=== PATIENT | female | born 1960 | race Two or more races ===

== ENCOUNTER 2024-06-03 15:42 | Inpatient (IN) | payer BC, OTHER ==
[~2024-06-03] VITALS: Ht 170.2 cm; Wt 64.1 kg
--- NOTE | 2024-06-03 15:51 | ECG ---
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
--- NOTE | 2024-06-03 16:18 | ED.PDOC ---
HPI Comments 64 y/o F, presents to the ED for CC of chest pain. Patient states, that she was sitting in her car when she began to experience sudden spontaneous left sided chest pain with associated symptoms of palpations and shortness of breath. Patient relays, new onset symptoms of headache following the episode of chest pain which has since subsided upon arrival to the ED. Patient complains of current 6/10 pain. Patient denies numbness, weakness, lightheadedness, or N/V/D. No other symptoms or modifying factors at this time. Chief Complaint: Chest Pain Time Seen by MD: 16:00 Primary Care Provider: SABINE Valencia Notes: Nurses Notes, Medications, Allergies Allergies: Coded Allergies: NO KNOWN ALLERGIES (Unverified , 06/03/24) Information Source: Patient Mode of Arrival: Ambulatory Severity: Moderate Timing: Hours Duration: Since onset Prehospital treatment: None Location: Chest (L) Radiation: No Radiation Onset: At Rest Cardiac Risk Factors: None PE Risk Factors: None History of: None Modifying Factors: Nothing Associated Signs and Symptoms: SOB, Palpitations Past Medical History PAST MEDICAL HISTORY: Denies Surgical History: Denies all surgeries ASSISTED SALES REPRESENTATIVE History: Denies all ASSISTED SALES REPRESENTATIVE Hx Family History Family History: Unknown Social History Smoker: Non-Smoker Alcohol: Occasionally Drugs: Denies Drug Use Lives In: Home Constitutional: denies: chills, diaphoresis, fatigue, fever, malaise, sweats, weakness, others EENTM: denies: blurred vision, double vision, ear bleeding, ear discharge, ear drainage, ear pain, ear ringing, eye pain, eye redness, hearing loss, mouth pain, mouth swelling, nasal discharge, nose bleeding, nose congestion, nose pain, photophobia, tearing, throat pain, throat swelling, voice changes, others Respiratory: denies: cough, hemoptysis, orthopnea, SOB at rest, shortness of breath, SOB with excertion, stridor, wheezing, others Cardiovascular: reports: chest pain, palpitations; denies: dizzy spells, diaphoresis, Dyspnea on exertion, edema, irregular heart beat, left arm pain, lightheadedness, PND, syncope, others Gastrointestinal: denies: abdomen distended, abdominal pain, blood streaked bowels, constipated, diarrhea, dysphagia, difficulty swallowing, hematemesis, melena, nausea, poor appetite, poor fluid intake, rectal bleeding, rectal pain, vomiting, others Genitourinary: denies: abnormal vagina bleeding, burning, dyspareunia, dysuria, flank pain, frequency, hematuria, incontinence, pain, , vagina discharge, urgency, others Neurological: reports: headache; denies: dizziness, fainting, left sided numbness, left sided weakness, numbness, paresthesia, pre-existing deficit, right sided numbness, right sided weakness, seizure, speech problems, tingling, tremors, weakness, others Musculoskeletal: denies: back pain, gout, joint pain, joint swelling, muscle pain, muscle stiffness, neck pain, others Integumetry: denies: bruises, change in color, change in hair/nails, dryness, laceration, lesions, lumps, rash, wounds, others Allergic/Immunocompromised: denies: Difficulty Healing, Frequent Infections, Hives, Itching, others Hematologic/Lymphatic: denies: anemia, blood clots, easy bleeding, easy bruising, swollen glands, others Endocrine: denies: excessive hunger, excessive sweating, excessive thirst, excessive urination, flushing, intolerance to cold, intolerance to heat, unexplained weight gain, unexplained weight loss, others Psychiatric: denies: anxiety, bipolar disorder, depression, hopeless, panic disorder, schizophrenia, sleepless, suicidal, others All Other Systems: Reviewed and Negative Physical Exam General Appearance: Moderate Distress HEENT: Normal ENT Inspection, Pharynx Normal, TMs Normal Neck: Full Range of Motion, Non-Tender, Normal, Normal Inspection Respiratory: Chest Non-Tender, Lungs Clear, No Accessory Muscle Use, No Respiratory Distress, Normal Breath Sounds Cardiovascular: Bradycardia, No Edema, No JVD, No Murmur, No Gallop Breast Exam: Deferred Gastrointestinal: No Organomegaly, Non Tender, No Pulsatile Mass, Normal Bowel Sounds, Soft Genitalia: Deferred Pelvic: Deferred Rectal: Deferred Extremities: No calf tenderness, Normal capillary refill, Normal inspection, Normal range of motion, Non-tender, No pedal edema Musculoskeletal : Apperance: Normal 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 Was a procedure done?: No CP Differential Dx Differential Diagnosis: Anxiety / Panic Attack Differential Diagnosis: Chest Wall Pain, Costochondritis, Pneumonia X-Ray, Labs, Meds, VS Vital Signs Date Time Temp Pulse Resp B/P (MAP) Pulse Ox O2 Delivery O2 Flow Rate FiO2 06/03/24 17:54 54 16 98 Room Air* 0 21 06/03/24 17:54 97.8 54 14 155/67 (96) 98 97.8 06/03/24 15:50 49 06/03/24 15:46 97.6 51 18 123/48 (73) 99 Lab Test 06/03/24 17:23 06/03/24 15:58 Range/Units Troponin I High Sensitivity 4 4 </=34 ng/L White Blood Count 2.8 L 4.4-10.8 10^3/uL Red Blood Count 4.15 4.0-5.20 10^6/uL Hemoglobin 13.0 12.2-16.2 g/dL Hematocrit 39.4 36.0-46.0 % Mean Corpuscular Volume 94.8 80.0-100.0 fL Mean Corpuscular Hemoglobin 31.2 28.0-32.0 pg Mean Corpuscular Hemoglobin Concent 32.9 32.0-36.0 g/dL Red Cell Distribution Width 13.5 11.8-14.3 % Platelet Count 227 140-450 10^3/uL Mean Platelet Volume 7.4 6.9-10.8 fL Neutrophils (%) (Auto) 56.2 37.0-80.0 % Lymphocytes (%) (Auto) 29.5 10.0-50.0 % Monocytes (%) (Auto) 11.1 0.0-12.0 % Eosinophils (%) (Auto) 2.9 0.0-7.0 % Basophils (%) (Auto) 0.3 0.0-2.0 % Neutrophils # (Auto) 1.6 1.6-8.6 10 ^3/uL Lymphocytes # (Auto) 0.8 0.4-5.4 10 ^3/uL Monocytes # (Auto) 0.3 0-1.3 10 ^3/uL Eosinophils # (Auto) 0.1 0-0.8 10 ^3/uL Basophils # (Auto) 0 0-0.2 10 ^3/uL Nucleated Red Blood Cells 0.0 % Sodium Level 140 136-145 mmol/L Potassium Level 4.4 3.5-5.1 mmol/L Chloride Level 105 98-107 mmol/L Carbon Dioxide Level 28 20-31 mmol/L Anion Gap 7 5-15 Blood Urea Nitrogen 20 9-23 mg/dL Creatinine 0.87 0.550-1.02 mg/dL Glomerular Filtration Rate Calc 75 >90 mL/min BUN/Creatinine Ratio 23.0 H 10.0-20.0 Serum Glucose 109 H 74-106 mg/dL Calcium Level 10.0 8.7-10.4 mg/dL Current Medications Medications (Trade) Dose Ordered Sig/Jagruti Route Start Time Stop Time Status Last Admin Aspirin 162 mg ONCE ONCE PO 06/03/24 16:15 06/03/24 16:16 DC 06/03/24 17:48 CXR TWO VIEWS: FINDINGS: Lines and Tubes: None Lungs: Granulomatous changes right upper lobe, stable Pleura: No effusion. No pneumothorax. Cardiomediastinal contours: Unremarkable Bones: Unremarkable IMPRESSION: 1. No evidence of acute disease. ATED BY: ELIJAH ARMENDARIZ MD DICTATED DATE/TIME: 06/03/241635 SIGNED BY: ELIJAH ARMENDARIZ MD SIGNED DATE/TIME: 06/03/241635 CC: IV Hep-Lock was established The patient was given aspirin 162 mg by mouth The patient's CBC shows leukopenia at 2.8 The troponin level x2 is negative The chemistry panel is within normal limits The patient has persistent pain so we are admitting the patient to the hospitalist The patient was diagnosis is acute coronary syndrome The patient was admitted A cardiology consult will be obtained. Images Reviewed?: Images reviewed and evaluated by me Time of 1ST Reevaluation: 16:30 Reevaluation 1ST: Unchanged Patient Education/Counseling: Diagnosis, Treatment Family Education/Counseling: No Family Present Departure 1 Departure Time of Disposition: 18:48 Impression: Primary Impression: Acute coronary syndrome Additional Impression: Sinus bradycardia Disposition: ADMITTED INPATIENT Admit to: [facility] Condition: Fair Critical Care Note Critical Care Time?: Yes (35 min-critical care time only) Stability Stability form required: Yes Unstable for transfer: Telemetry monitoring (Telemetry monitoring required), ED Physician Assesment (Clinical assesment) Heart Score Heart Score: Heart Score Response (Comments) Value History Moderate Suspicious 1 EKG Repolarization Disturb 1 Age 45-64 1 Risk Factors 1 or 2 risk factors 1 Troponin Normal limit 0 Total 4 I personally scribed for HOWIE NOE MD ([email or web address]) on 06/03/24 at 16:18. Electronically submitted by Isaura Barry ([employer]). I personally scribed for HOWIE NOE MD ([email or web address]) on 06/03/24 at 16:28. Electronically submitted by Isaura Barry ([employer]). I personally scribed for HOWIE NOE MD ([email or web address]) on 06/03/24 at 16:57. Electronically submitted by Isaura Barry ([employer]). HOWIE NOE MD Jun 03, 2024 16:18
[2024-06-03 16:28] LABS: Basophils # (auto) 0 10 ^3/uL (0-0.2); Basophils % (auto) 0.3 % (0.0-2.0); Eosinophils # (auto) 0.1 10 ^3/uL (0-0.8); Eosinophils % (auto) 2.9 % (0.0-7.0); Hematocrit 39.4 % (36.0-46.0); Lymphocytes # (auto) 0.8 10 ^3/uL (0.4-5.4); Lymphocytes % (auto) 29.5 % (10.0-50.0); Mean Corpuscular Hemoglobin 31.2 pg (28.0-32.0); Mean Corpuscular Hgb Conc. 32.9 g/dL (32.0-36.0); Mean Corpuscular Volume 94.8 fL (80.0-100.0); Monocytes # (auto) 0.3 10 ^3/uL (0-1.3); Monocytes % (auto) 11.1 % (0.0-12.0); Neutrophils # (auto) 1.6 10 ^3/uL (1.6-8.6); Neutrophils % (auto) 56.2 % (37.0-80.0); Platelet Count (auto) 227 10^3/uL (140-450); Red Blood Cells 4.15 10^6/uL (4.0-5.20); Red Cell Distribution Width 13.5 % (11.8-14.3); White Blood Cell 2.8 10^3/uL (4.4-10.8)
[2024-06-03 16:35] LABS: Chloride 105 mmol/L (98-107); Potassium 4.4 mmol/L (3.5-5.1); Sodium 140 mmol/L (136-145)
[2024-06-03 16:36] LABS: Anion Gap 7 (5-15); Carbon Dioxide 28 mmol/L (20-31)
--- NOTE | 2024-06-03 16:39 | DVH ---
CHEST RADIOGRAPH Indication: cp Technique: Frontal and lateral view of the chest was obtained Comparison: None FINDINGS: Lines and Tubes: None Lungs: Granulomatous changes right upper lobe, stable Pleura: No effusion. No pneumothorax. Cardiomediastinal contours: Unremarkable Bones: Unremarkable IMPRESSION: 1. No evidence of acute disease.
[2024-06-03 16:41] LABS: Blood Urea Nitrogen 20 mg/dL (9-23)
[2024-06-03 16:45] LABS: Glucose 109 mg/dL (74-106)
--- NOTE | 2024-06-03 16:52 | ECG ---
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
[2024-06-03] MEDS: ASPirin 81 mg TAB PO ONE (17:48)
[2024-06-03 17:54] VITALS: PULSE 54; RESP 16; O2SAT 98
[2024-06-03] MEDS ORDERED: ONDANSETRON HCL 4 MG/2 ML VIAL IV PRN (19:15)
[2024-06-03] MEDS ORDERED: MORPHINE SULFATE INJ 2 MG/ml SYRG IV PRN (19:15)
[2024-06-03] MEDS ORDERED: ACETAMINOPHEN 325 MG TAB PO PRN (19:15)
[2024-06-03] MEDS ORDERED: NITROGLYCERIN 0.4 MG SL TAB SL PRN (19:15)
[2024-06-04] MEDS: ATORVASTATIN 20 MG TAB PO SCH (02:45)
[2024-06-04 02:48] VITALS: PULSE 51; RESP 18; O2SAT 97
--- NOTE | 2024-06-04 03:31 | DVHHP2 ---
History of Present Illness Reason for Visit: Chest pain History of Present Illness 64-year-old female presents for evaluation new onset of chest pain. Patient reports having an episode yesterday while sitting in her car where she developed left-sided pressure-like chest pain with associated shortness for breath and palpitations. She reports the symptoms have subsided since arrival to the emergency department. Past Medical History Hypertension Past Surgical History Denies Family History Noncontributory Smoke: No ALCOHOL: occassional Drugs: None Lives: with Family Review of Systems Review of Systems Review of systems are currently negative otherwise addressed in HPI. Allergies: Coded Allergies: NO KNOWN ALLERGIES (Unverified , 06/03/24) Medications Current Medications Medications Dose Ordered Sig/Jagruti Route Start Time Stop Time Status Last Admin Dose Admin Aspirin 81 mg DAILY PO 06/04/24 10:00 Atorvastatin Calcium 10 mg HS PO 06/03/24 22:00 06/04/24 02:45 10 MG Valsartan 80 mg DAILY PO 06/04/24 10:00 Amlodipine Besylate 2.5 mg DAILY PO 06/04/24 10:00 Ondansetron HCl 4 mg Q4HP PRN IV 06/03/24 19:15 Acetaminophen 650 mg Q6HP PRN PO 06/03/24 19:15 Nitroglycerin 0.4 mg Q5MINP PRN SL 06/03/24 19:15 Morphine Sulfate 2 mg Q30M PRN IV 06/03/24 19:15 Exam Vital Signs Vital Signs Date Time Temp Pulse Resp B/P (MAP) Pulse Ox O2 Delivery O2 Flow Rate FiO2 06/04/24 02:48 97.8 51 18 109/41 (63) 97 97.8 06/04/24 02:48 Room Air* 0 21 Exam Gen: 64-year-old female in mild distress Skin: Warm, dry, normal color and texture, no rash. HEENT: Normocephalic atraumatic, mucous membranes moist and pink. Neck: Cervical and supraclavicular nodes normal without enlargement, trachea is midline, thyroid gland is normal without masses. Pulmonary: Clear to auscultation and percussion bilaterally. Cardiac: Regular rate and rhythm. No murmur Abdomen: Soft, nontender, nondistended, bowel sounds present all 4 quadrants, no guarding, no rigidity, no organomegaly. Extremities: No cyanosis, clubbing, no edema Neuro: Cranial nerves II through XII grossly intact, normal affect and speech, no focal motor deficits. Labs/Xrays ORDERING PHYSICIAN: HOWIE NOE MD PROCEDURE(s): CXR2 - CHEST TWO VIEWS ROUTINE REASON: cp ORDER NUMBER(s): [id number], ACCESSION NUMBER(s): [id number] CHEST RADIOGRAPH Indication: cp Technique: Frontal and lateral view of the chest was obtained Comparison: None FINDINGS: Lines and Tubes: None Lungs: Granulomatous changes right upper lobe, stable Pleura: No effusion. No pneumothorax. Cardiomediastinal contours: Unremarkable Bones: Unremarkable IMPRESSION: 1. No evidence of acute disease. Labs Test 06/03/24 17:23 06/03/24 15:58 Range/Units Troponin I High Sensitivity 4 </=34 ng/L White Blood Count 2.8 L 4.4-10.8 10^3/uL Red Blood Count 4.15 4.0-5.20 10^6/uL Hemoglobin 13.0 12.2-16.2 g/dL Hematocrit 39.4 36.0-46.0 % Mean Corpuscular Volume 94.8 80.0-100.0 fL Mean Corpuscular Hemoglobin 31.2 28.0-32.0 pg Mean Corpuscular Hemoglobin Concent 32.9 32.0-36.0 g/dL Red Cell Distribution Width 13.5 11.8-14.3 % Platelet Count 227 140-450 10^3/uL Mean Platelet Volume 7.4 6.9-10.8 fL Neutrophils (%) (Auto) 56.2 37.0-80.0 % Lymphocytes (%) (Auto) 29.5 10.0-50.0 % Monocytes (%) (Auto) 11.1 0.0-12.0 % Eosinophils (%) (Auto) 2.9 0.0-7.0 % Basophils (%) (Auto) 0.3 0.0-2.0 % Neutrophils # (Auto) 1.6 1.6-8.6 10 ^3/uL Lymphocytes # (Auto) 0.8 0.4-5.4 10 ^3/uL Monocytes # (Auto) 0.3 0-1.3 10 ^3/uL Eosinophils # (Auto) 0.1 0-0.8 10 ^3/uL Basophils # (Auto) 0 0-0.2 10 ^3/uL Nucleated Red Blood Cells 0.0 % Sodium Level 140 136-145 mmol/L Potassium Level 4.4 3.5-5.1 mmol/L Chloride Level 105 98-107 mmol/L Carbon Dioxide Level 28 20-31 mmol/L Anion Gap 7 5-15 Blood Urea Nitrogen 20 9-23 mg/dL Creatinine 0.87 0.550-1.02 mg/dL Glomerular Filtration Rate Calc 75 >90 mL/min BUN/Creatinine Ratio 23.0 H 10.0-20.0 Serum Glucose 109 H 74-106 mg/dL Calcium Level 10.0 8.7-10.4 mg/dL Assessment/Plan Assessment/Plan Assessment Chest pain rule out ACS Hypertension Plan Admit the patient to telemetry to the hospitalist Cardiology consultation Echocardiogram pending Resume home medications Continue treatment per orders. Plan discussed with: Patient My Orders Orders - ELSI SANTOS AGACNToño Procedure Category Date Status Time Aspirin Tablet PHA 06/04/24 In Process 10:00 Valsartan (Diovan) PHA 06/04/24 In Process 10:00 Amlodipine Tablet PHA 06/04/24 In Process (Norvasc Tablet) 10:00 * Cardiology Consult CONS 06/03/24 Transmitted 19:05 Basic Metabolic Panel LAB 06/04/24 Logged 04:00 Admit ADMIT 06/03/24 Transmitted 19:05 Ondansetron Hcl PHA 06/03/24 In Process (Zofran) 19:15 Cardiac DIET 06/04/24 Transmitted Diet-2gna,Lofat,Lochol Breakfast Echo 2d Mode Cardiac US 06/03/24 Logged DOP 19:05 Condition: Fair PANFILO 06/03/24 In Process 19:05 Acetaminophen Tablet PHA 06/03/24 In Process (Tylenol Tablet) 19:15 Bedrest With Bathroom PANFILO 06/03/24 In Process Privileg 19:05 Nitroglycerin PHA 06/03/24 In Process Sublingual (Ntrostat 19:15 Morphine Sulfate PHA 06/03/24 In Process Injection 19:15 Stat Ekg For Chest PANFILO 06/03/24 In Process Pain 19:05 Notify Of Changes PANFILO 06/03/24 In Process From Base 19:05 Automatic Pinsetter Adjuster For PANFILO 06/03/24 In Process 24 Hours 19:05 Emergency Dysrhythmia [facility] 06/03/24 In Process Protocol 19:05 Rhythm Strips Once [facility] 06/03/24 In Process Every Shift 19:05 Oxygen By Nasal RT 06/03/24 Transmitted Cannula 19:05 Atorvastatin (Lipitor) PHA 06/03/24 In Process 22:00 Thyroid Stimulating LAB 06/04/24 Logged Hormone 03:24 Lipid Panel LAB 06/04/24 Logged 04:00 Date of Service: Jun 03, 2024 Billing Provider: ELSI SANTOS Common Visit Codes: [id number] INP/OBS CARE (HIGH) ELSI SANTOS Jun 04, 2024 03:31
[2024-06-04 07:02] LABS: Chloride 107 mmol/L (98-107); Potassium 3.9 mmol/L (3.5-5.1); Sodium 141 mmol/L (136-145)
[2024-06-04 07:03] LABS: Anion Gap 6 (5-15); Carbon Dioxide 28 mmol/L (20-31)
[2024-06-04 07:04] LABS: Calcium 9.9 mg/dL (8.7-10.4)
[2024-06-04 07:08] LABS: Blood Urea Nitrogen 17 mg/dL (9-23)
[2024-06-04 07:09] LABS: LDL Cholesterol 79 mg/dL (< 100); Triglycerides 154 mg/dL (< 150)
[2024-06-04 07:10] LABS: Cholesterol 184 mg/dL (< 200)
[2024-06-04 07:12] LABS: HDL Cholesterol 85 mg/dL (40-59)
[2024-06-04 07:24] LABS: Glucose 142 mg/dL (74-106)
--- NOTE | 2024-06-04 09:39 | DVHINCON2 ---
Date Seen: Jun 04, 2024 Referring Physician CALVIN Sandoval Reason for Consultation Chest pain History of Present Illness This is a 64-year-old female who presented to the emergency room with a chief complaint of chest pain for a few hours prior to arrival. Describes her chest pain as substernal, heavy like, nonradiating, and associated with mild SOB, ORTIZ, and palpitations. Denies diaphoresis, dizziness, or syncopal events. She underwent multiple 12 lead electrocardiogram revealing a sinus bradycardia rhythm with multiple PACs and suggestive of LVH. She takes valsartan 80 mg for blood pressure control and stopped taking amlodipine 2.5 mg given borderline blood pressures. Serial troponin levels are negative. Significant medical history includes hypertension and dyslipidemia. Past Medical History Past medical history reviewed. No other significant than mentioned above. Past Surgical History Denies any past surgical history. Family History Family history reviewed. Not significant for CV disease. Social History Denies the use of illicit drugs, alcohol, or tobacco use. Allergies: Coded Allergies: NO KNOWN ALLERGIES (Unverified , 06/03/24) Home Meds Home medications reviewed. Current Medications Current Medications Medications (Trade) Dose Ordered Sig/Jagruti Route PRN Reason Start Time Stop Time Status Last Admin Aspirin 81 mg DAILY PO 06/04/24 10:00 Atorvastatin Calcium (Lipitor) 10 mg HS PO 06/03/24 22:00 06/04/24 02:45 Valsartan (Diovan) 80 mg DAILY PO 06/04/24 10:00 Amlodipine Besylate (Norvasc Tablet) 2.5 mg DAILY PO 06/04/24 10:00 Ondansetron HCl (Zofran) 4 mg Q4HP PRN IV NAUSEA / VOMITING 06/03/24 19:15 Acetaminophen (Tylenol Tablet) 650 mg Q6HP PRN PO PAIN SCALE 1-3 OR TEMP>100.4 06/03/24 19:15 Nitroglycerin (Ntrostat Sublingual) 0.4 mg Q5MINP PRN SL FOR CHEST PAIN 06/03/24 19:15 Morphine Sulfate 2 mg Q30M PRN IV FOR CHEST PAIN 06/03/24 19:15 Review of Systems Constitutional: No symptom reported Ears, Nose, & Throat: No symptom reported Eyes: No symptom reported Neurological: No symptoms reported Pulmonary/Respiratory: No symptom reported Cardiovascular: Chest pain, palpitations Gastrointestinal: No symptom reported Genitourinary: No symptom reported Musculoskeletal: No symptom reported Skin: No symptom reported Psychiatric: No symptom reported Endocrine: No symptom reported Hemotologic/Lymphatic: No symptom reported Vital Signs Vital Signs Date Time Temp Pulse Resp B/P (MAP) Pulse Ox O2 Delivery O2 Flow Rate FiO2 06/04/24 07:26 97.8 58 18 112/47 (68) 98 97.8 06/04/24 02:48 Room Air* 0 21 Physical Exam General Appearance: Cooperative. Well developed. Well nourished. In no acute distress Head Exam: Normal inspection Neck Exam: Normal inspection. Non-tender. Normal alignment Pulmonary/Respiratory: Chest non-tender. Clear bilateral breath sounds Cardiovascular/Chest: Regular rate and rhythm. S1, S2. Sinus bradycardia with multiple PACs. No murmurs. No JVD. Peripheral Pulses: 2+ Radial (R). 2+ Radial (L). 2+ Pedal (R). 2+ Pedal (L) Abdominal Exam: Normal bowel sounds. Soft. Nontender. No hepatospenomegaly. No masses Ankle Exam: Negative ankle edema Lower extremities: Negative lower extremity edema Neuro/Mental Status: A&O x4. Coherent Thoughts/Psych: Normal thought pattern. Appropriate mood and affect. Good judgement and insight Appearance: In no acute distress Skin Exam: Normal inspection. Normal color. Warm. Dry Labs/Diagnostic Data Labs Test 06/04/24 06:14 06/03/24 17:23 06/03/24 15:58 Range/Units Sodium Level 141 136-145 mmol/L Potassium Level 3.9 3.5-5.1 mmol/L Chloride Level 107 98-107 mmol/L Carbon Dioxide Level 28 20-31 mmol/L Anion Gap 6 5-15 Blood Urea Nitrogen 17 9-23 mg/dL Creatinine 0.81 0.550-1.02 mg/dL Glomerular Filtration Rate Calc 82 >90 mL/min BUN/Creatinine Ratio 21.0 H 10.0-20.0 Serum Glucose 142 H 74-106 mg/dL Calcium Level 9.9 8.7-10.4 mg/dL Triglycerides Level 154 H < 150 mg/dL Cholesterol Level 184 < 200 mg/dL LDL Cholesterol 79 < 100 mg/dL HDL Cholesterol 85 H 40-59 mg/dL Thyroid Stimulating Hormone (TSH) 1.61 0.55-4.78 uIU/mL Troponin I High Sensitivity 4 </=34 ng/L White Blood Count 2.8 L 4.4-10.8 10^3/uL Red Blood Count 4.15 4.0-5.20 10^6/uL Hemoglobin 13.0 12.2-16.2 g/dL Hematocrit 39.4 36.0-46.0 % Mean Corpuscular Volume 94.8 80.0-100.0 fL Mean Corpuscular Hemoglobin 31.2 28.0-32.0 pg Mean Corpuscular Hemoglobin Concent 32.9 32.0-36.0 g/dL Red Cell Distribution Width 13.5 11.8-14.3 % Platelet Count 227 140-450 10^3/uL Mean Platelet Volume 7.4 6.9-10.8 fL Neutrophils (%) (Auto) 56.2 37.0-80.0 % Lymphocytes (%) (Auto) 29.5 10.0-50.0 % Monocytes (%) (Auto) 11.1 0.0-12.0 % Eosinophils (%) (Auto) 2.9 0.0-7.0 % Basophils (%) (Auto) 0.3 0.0-2.0 % Neutrophils # (Auto) 1.6 1.6-8.6 10 ^3/uL Lymphocytes # (Auto) 0.8 0.4-5.4 10 ^3/uL Monocytes # (Auto) 0.3 0-1.3 10 ^3/uL Eosinophils # (Auto) 0.1 0-0.8 10 ^3/uL Basophils # (Auto) 0 0-0.2 10 ^3/uL Nucleated Red Blood Cells 0.0 % Assessment Chest pain rule out coronary artery disease Sinus bradycardia with multiple PACs Hypertension Dyslipidemia Plan/Recommendation (Dr. Bass) The patient presents with a 12 lead electrocardiogram revealing a sinus bradycardia rhythm suggestive of left ventricular hypertrophy with associated PACs and a Heart Score of 4 placing her at a moderate risk for major cardiac events. Continue further cardiac evaluation with a transthoracic echocardiogram to rule out structural heart disease and a treadmill Cardiolite stress test to rule out coronary ischemia. In the meantime, initiate BB and magnesium therapy. Monitor ECG changes and notify. Continue chest pain protocol. Thank you for allowing us to participate in this patient's care. Please call if you have any questions or concerns. This medical document was created using an electronic medical record system with voice recognition software and computerized dictation system. Although this document has been carefully reviewed, there might still be some phonetic and typographical errors. Occasional wrong-word or ``sound-alike substitutions may have occurred due to the inherent limitations of voice recognition software. These areas are purely typographical due to imperfections of the software programs and do not reflect any compromise in the patient's medical care. Pl ease read the chart carefully and recognize, using context, where these substitutions have occurred. Plan discussed with: Patient, Other NYHA Physical activity limitations: NA Date of Service: Jun 04, 2024 Billing Provider: RANDOLPH GONSALVES Cardiology Common Codes: [id number] INP/OBS CARE (High) RANDOLPH GONSALVES Jun 04, 2024 09:39
[2024-06-04] MEDS ORDERED: amLODIPine BESYLATE 5 MG TAB PO SCH (10:00)
[2024-06-04] MEDS ORDERED: VALSARTAN 80 MG TAB PO SCH (10:00)
[2024-06-04] MEDS: ASPirin 81 mg TAB PO SCH (11:51)
[2024-06-04] MEDS: MAGNESIUM OXIDE 400 MG TAB PO ONE (11:51)
[2024-06-04] MEDS: METOPROLOL SUCCINATE XL 50 MG TAB PO SCH (11:53)
--- NOTE | 2024-06-04 12:05 | DVHCARD ---
Cardiology Stress Test [place] Treadmill Stress Test [place] Referring MD: CALVIN Gonsalves Protocol: Carroll (with cardiolite) Reason for referral: Chest Pain Target heart Rate:@85%: 134 Percent MPHR: 158 METS: 10.4 Resting Heart rate: 57 Resting Blood Pressure: 113/55 Exercise Heart Rate: 141 Exercise Blood Pressure: 149/97 Reason for Termination of Test: Chest Pain Baseline EKG: Sinus bradycardia with LVH Stress EKG: Sinus tachycardia with artifact difficult to discern ST-segment change Functional Capacity: Good Normal Heart Rate Response: Adequate Blood Pressure Response: Hypertensive Clinical response: Inconclusive Arrhythmia?: No Cardiolite Injected?: Yes ST-T Changes: Inconclusive Probability of Inducible Ische: Perfusion result pending Comments: Unable to discern ST segment changes given artifact Date of Service: Jun 04, 2024 Billing Provider: RANDOLPH GONSALVES Cardiology Common Codes: PROCEDURE ONLY Treadmill W/Cardiolite Nuclear: [id number], INTERP, RPT RANDOLPH GONSALVES Jun 04, 2024 12:05
[2024-06-04] MEDS: SODIUM CHLORIDE 0.9% 500 ML IV ONE (17:30)
[2024-06-04 19:42] VITALS: BP 111/49; PULSE 54; RESP 17; TEMP 98.2; O2SAT 98
[2024-06-04 20:00] VITALS: PULSE 54; PULSE 58; RESP 17; O2SAT 98
[2024-06-04] MEDS ORDERED: VALS80TA44 PO (20:31)
[2024-06-04 20:55] VITALS: BP 111/49; PULSE 54; RESP 17; TEMP 98.2; O2SAT 97
[2024-06-05] VITALS (7 sets, daily range): BP systolic 103–125; BP diastolic 36–51; PULSE 43–57; RESP 16–17; TEMP 97.6–98.2; O2SAT 96–99
[2024-06-05] MEDS: SODIUM CHLORIDE 0.9% 500 ML IV ONE (05:39)
[2024-06-05] MEDS ORDERED: AMLO1TAB21 PO (07:34)
[2024-06-05] MEDS ORDERED: VALS1TAB57 PO (07:34)
[2024-06-05 12:57] LABS: Urine Bacteria None Seen /hpf (None Seen)
[2024-06-05 13:05] LABS: Urine Blood Negative /uL (Negative); Urine Clarity Clear (Clear); Urine Color Colorless (Yellow); Urine Protein, UAD Negative (Negative); Urine Specific Gravity 1.006 (1.001-1.035); Urine Squamous Epithelial Cell FEW /hpf (<5); Urine Urobilinogen Normal (Negative); Urine WBC 1 /HPF (0-5); Urine pH 6.5 (5.0-9.0)
--- NOTE | 2024-06-05 13:21 | DVHSR ---
APPROVED REPORT Exam: Nuclear Stress Test Indication: Chest pain BMI: 0 Medical History Medical History: HTN Stress Test Details Stress Test: Exercise stress testing was performed using a Carroll protocol. HR Resting HR: 57 bpmMax Heart Rate (APMHR): 158.304995 bpm Max HR Achieved: 141 bpmTarget HR (85% APMHR): 134.876932 bpm % of APMHR: 89.24 Recovery HR: 74 bpm BP Resting BP: 113/55 mmHg Recovery BP: 156/69 mmHg ECG Resting ECG: Sinus Bradycardia Clinical Reason for Termination: Completed protocol Exercise duration: 9 min 0 sec Nurse Comments Recieved ambulatory, A/Ox4 on RA, connected to data communications technician, VS stable. PIV S/L flushes well, revi ewed POC, pt verbalized understanding. Vivek HAND SPRAY OPERATOR here to monitor exam. Treadmill test performed per protocol. Pt stable, tolerated well, VS returned to baseline. Pt to follow up with material cutter for results. Stress ECG Conclusion ecg shows SR, frequent ectopy, PACs , abnormal stress imaging no ischemia normal perfusion normal lvef 63% NM EXAM: Myocardial Perfusion REST/STRESS Imaging Protocol: Rest Tc-99m/Stress Tc-99m 1 day Resting Data Rest SPECT myocardial perfusion imaging was performed in supine position 60 minutes following the int ravenous injection of 12.2 mCi of Tc-99m Sestamibi. Time of rest injection: 1000 Time of rest imagin Administration Route: IV Administration Site: Right Arm Pharmacologic Stress Time of stress injection: 1140 Time of stress imagin Administration Route: IV Administration Site: Right Arm The images were gated to evaluate regional wall motion and calculate left ventricular ejection fracti on. Stress only was performed in the Supine position. Exercise Stress At peak stress, the patient was injected intravenously with 32.4mCi of Tc-99m Sestamibi. Time of stress injection: 1140 Time of stress imagin Administration Route: IV Administration Site: Right Arm Patient continued to exercise for 9 minute(s). Gated Stress SPECT was performed 30 minutes after stress injection. The images were gated to evaluate regional wall motion and calculate left ventricular ejection fracti on. Stress only was performed in the Supine position. Nuclear Conclusion Nuclear Findings: negative for ischemia ecg shows SR, frequent ectopy, PACs , abnormal stress imaging no ischemia normal perfusion normal lvef 63%
--- NOTE | 2024-06-05 15:49 | DVHSR ---
APPROVED REPORT EXAM: Two-dimensional and M-mode echocardiogram with Doppler and color Doppler. Blood Pressure: 112/47 mmHg INDICATION Chest Pain RISK FACTORS Height: 5' 7", Weight: 128 DIMENSIONS LVDd3.8 (3.8-5.7cm)LA (2D)4.0 (1.9-4.0cm)Aortic Root3.2 (2.0-3.7cm) LVDs2.7 (2.5-4.0cm)LA (MM) (1.9-4.0cm)Aortic Cusp Exc1.9 (1.5-2.0cm) EF (%) 55.0 (55-70%)Rt. Atrium4.0 (1.9-4.0cm)Asc. Aorta cm IVSd0.9 (0.7-1.1cm)RV (D) (1.8-2.4cm) PWd1.0 (0.7-1.1cm) Mitral Valve MitralMitral Stenosis E wave0.80m/sMV Mean GR.mmHg A wave0.70m/sMV Peak GR.mmHg E/A ratio1.12D MVAcm2 Aortic Valve Aortic ValveAortic Stenosis V11.20m/Ludivina Mean GR.5mmHg V21.50m/Ludivina Peak GR.9mmHg LVOT Diameter2.0 (1.8-2.4cm)Doppler AVA2.51cm2 Pulmonic Valve V20.50m/s Conclusion Sinus rhythm. Biatrial enlargement. Valves are normal. EF of 55% with normal RV function. Mild TR. No pericardial effusion masses or vegetations.
--- NOTE | 2024-06-05 16:57 | DVHPN2 ---
Consult Progress Note Subjective Other Systems: Patient remains in sinus bradycardia on lunchroom monitor. No cardiac symptoms at this time Objective vital signs Vital Sign Date Time Temp Pulse Resp B/P (MAP) Pulse Ox O2 Delivery O2 Flow Rate FiO2 06/05/24 13:00 97.9 54 16 125/49 (74) 99 97.9 06/05/24 08:00 Room Air* 0 21 Total Intake and Output 06/04/24 06/04/24 06/05/24 15:00 23:00 07:00 Intake Total 250 ml Balance 250 ml medications Current Medications Medications Dose Ordered Sig/Jagruti Route Start Time Stop Time Status Last Admin Dose Admin Aspirin 81 mg DAILY PO 06/04/24 10:00 06/05/24 10:28 81 MG Atorvastatin Calcium 10 mg HS PO 06/03/24 22:00 06/04/24 21:08 10 MG Ondansetron HCl 4 mg Q4HP PRN IV 06/03/24 19:15 Acetaminophen 650 mg Q6HP PRN PO 06/03/24 19:15 Nitroglycerin 0.4 mg Q5MINP PRN SL 06/03/24 19:15 Morphine Sulfate 2 mg Q30M PRN IV 06/03/24 19:15 Examination: GENERAL:Normal, LUNGS:Normal, CVS:Normal, NEURO:Normal laboratory and microbiology Laboratory Tests 06/04/24 06:14 06/03/24 15:58 Test 06/04/24 06:14 Range/Units Serum Glucose 142 H 74-106 mg/dL Problem List/Assessment/Plan Problem List/Assessment/Plan Chest pain, ruled out coronary artery disease Sinus bradycardia with multiple PACs Hypertension Dyslipidemia Plan/Recommendation (Dr. Bass): Case discussed with . Transthoracic echocardiogram reveals EF 55%. The patient underwent a nuclear stress test which was negative for ischemia. There is no further inpatient cardiac workup indicated at this time. Cardiology will sign off. Thank you for allowing us to care for this patient. Please call with any questions or concerns. This medical document was created using an electronic medical record system with voice recognition software and computerized dictation system. Although this document has been carefully reviewed, there might still be some phonetic and typographical errors. Occasional wrong-word or ``sound-alike substitutions may have occurred due to the inherent limitations of voice recognition software. These areas are purely typographical due to imperfections of the software programs and do not reflect any compromise in the patient's medical care. Please read the chart carefully and recognize, using context, where these substitutions have occurred. Plan discussed with: Patient Date of Service: Jun 05, 2024 Billing Provider: DELMIS BAEZ Common Visit Codes: [id number] INP/OBS CARE(HIGH) DELMIS BAEZ Jun 05, 2024 16:57
[2024-06-05] MEDS ORDERED: ASPI-325 PO (17:13)
[2024-06-05] MEDS ORDERED: ATOR20TA50 PO (17:13)
--- NOTE | 2024-06-05 17:16 | DVHDS2 ---
Discharge Summary Date of Admission Jun 03, 2024 at 19:05 Date of Discharge: Jun 05, 2024 Labs/Diagnostic Data: Laboratory Results Test 06/05/24 12:40 06/04/24 06:14 06/03/24 17:23 06/03/24 15:58 Urine Color Colorless (Yellow) Urine Clarity Clear (Clear) Urine pH 6.5 (5.0-9.0) Urine Specific [place] 1.006 (1.001-1.035) Urine Protein Negative (Negative) Urine Ketones Negative (Negative) Urine Blood Negative /uL (Negative) Urine Nitrite Negative (Negative) Urine Bilirubin Negative (Negative) Urine Urobilinogen Normal mg/dL (Negative) Urine Leukocyte Esterase Negative /uL (Negative) Urine RBC None seen /hpf (0 - 4) Urine Microscopic WBC 1 /HPF (0-5) Urine Squamous Epithelial Cells Few /hpf (<5) Urine Bacteria None seen /hpf (None Seen) Urine Glucose Normal mg/dL (Normal) Sodium Level 141 mmol/L (136-145) Potassium Level 3.9 mmol/L (3.5-5.1) Chloride Level 107 mmol/L (98-107) Carbon Dioxide Level 28 mmol/L (20-31) Anion Gap 6 (5-15) Blood Urea Nitrogen 17 mg/dL (9-23) Creatinine 0.81 mg/dL (0.550-1.02) Glomerular Filtration Rate Calc 82 mL/min (>90) BUN/Creatinine Ratio 21.0 (10.0-20.0) Serum Glucose 142 mg/dL (74-106) Hemoglobin A1c 5.6 % A1C (<5.7) Calcium Level 9.9 mg/dL (8.7-10.4) Magnesium Level 2.1 mg/dL (1.6-2.6) Triglycerides Level 154 mg/dL (< 150) Cholesterol Level 184 mg/dL (< 200) LDL Cholesterol 79 mg/dL (< 100) HDL Cholesterol 85 mg/dL (40-59) Thyroid Stimulating Hormone (TSH) 1.61 uIU/mL (0.55-4.78) Troponin I High Sensitivity 4 ng/L (</=34) White Blood Count 2.8 10^3/uL (4.4-10.8) Red Blood Count 4.15 10^6/uL (4.0-5.20) Hemoglobin 13.0 g/dL (12.2-16.2) Hematocrit 39.4 % (36.0-46.0) Mean Corpuscular Volume 94.8 fL (80.0-100.0) Mean Corpuscular Hemoglobin 31.2 pg (28.0-32.0) Mean Corpuscular Hemoglobin Concent 32.9 g/dL (32.0-36.0) Red Cell Distribution Width 13.5 % (11.8-14.3) Platelet Count 227 10^3/uL (140-450) Mean Platelet Volume 7.4 fL (6.9-10.8) Neutrophils (%) (Auto) 56.2 % (37.0-80.0) Lymphocytes (%) (Auto) 29.5 % (10.0-50.0) Monocytes (%) (Auto) 11.1 % (0.0-12.0) Eosinophils (%) (Auto) 2.9 % (0.0-7.0) Basophils (%) (Auto) 0.3 % (0.0-2.0) Neutrophils # (Auto) 1.6 10 ^3/uL (1.6-8.6) Lymphocytes # (Auto) 0.8 10 ^3/uL (0.4-5.4) Monocytes # (Auto) 0.3 10 ^3/uL (0-1.3) Eosinophils # (Auto) 0.1 10 ^3/uL (0-0.8) Basophils # (Auto) 0 10 ^3/uL (0-0.2) Nucleated Red Blood Cells 0.0 % Other Laboratory Tests 06/04/24 06:14 06/03/24 15:58 Brief Hx & Hospital Course: 64-year-old female presents for evaluation new onset of chest pain. Patient reports having an episode yesterday while sitting in her car where she developed left-sided pressure-like chest pain with associated shortness for breath and palpitations. She reports the symptoms have subsided since arrival to the emergency department Troponins negative, stress test wnl and echo with EF 55% Condition at Discharge: Good Final Diagnosis/Problems List musculoskeletal chest pain hyperlipidemia htn Discharge Disposition: Home Discharge Instruct/Medications Diet: Regular Activity: No Restrictions, As Tolerated Follow Up/Referral: pcp in 7 days Medications: aspirin, statin, losartan Discharge Statement: "Patient was advised to return to the ER or call 911 if any headaches, dizziness, shortness of breath, chest pain, abdominal pain, bleeding, fevers, or worsening of medical condition. Patient was counseled about treatment plan, medications, possible side effects, patientverbalized understanding. All questions were answered to the best of my ability. This discharge took greater then 30 minutes in planning, reviewing documentation, counseling the patient, and discussing with other team members." ASSESSMENT ASSESSMENT Assessment musculoskeletal chest pain hyperlipidemia htn Date of Service: Jun 05, 2024 Billing Provider: RUBEN BLAKE MD Common Visit Codes: 31211-ESN/OBS DISCH DAY >30min RUBEN BLAKE MD Jun 05, 2024 17:16
== END 2024-06-05 18:20 | disposition home or self-care (01) | DRG 311 ==
LOC: ER 15:42 → OVERFLOW 19:05 → TELE-EAST 06-04 19:15
PROVIDERS: ADMIT Hospitalist; ATTEND Hospitalist
DX: I24.9 Acute ischemic heart disease, unspecified (principal); I10 Essential (primary) hypertension; R00.1 Bradycardia, unspecified; E78.5 Hyperlipidemia, unspecified; Z79.1 Long term (current) use of non-steroidal anti-inflammatories (NSAID); Z79.899 Other long term (current) drug therapy; Z79.82 Long term (current) use of aspirin
CPT/HCPCS: 36415; 71046; 78452; 80048; 80061; 81001; 83036; 83735; 84443; 84484; 85025; 93005; 93017; 93306; 99291; G0378